=== PATIENT | male | born 1965 | race Caucasian/White ===

== ENCOUNTER → 2020-03-13 | Outpatient (CLI) | payer OTHER ==
[~2020-03-13] MED LIST: ASCO10004 PO; ASPI-496 PO; CHOL500045 PO; HYDR473S47 PO; LACT1CAP37 PO; LISI-170 PO; OMEP40CA42 PO; VITA1CAP PO
== END | disposition home or self-care (01) ==
LOC: RAD 11:07
PROVIDERS: ATTEND Chiropractor
DX: M54.5 Low back pain (principal)
CPT/HCPCS: 72190